=== PATIENT | male | born 1985 | race Caucasian/White ===

== ENCOUNTER 2020-08-02 23:28 | Emergency (ER) | payer SELFPAY ==
--- OUTSIDE RECORDS SUMMARY | 2020-08-02 23:32 | XMS REPORT | Continuity of Care Document ---
:1985 Author Organization [facility] t Address [address] [place] [address] [address]. [address]. [address] [place] [address] Care Team Providers Name Role Phone Tristan Crooks MD Attending Clinician Problems This patient has no known problems. Allergies, Adverse Reactions, Alerts This patient has no known allergies or adverse reactions. Medications This patient has no known medications. Procedures This patient has no known procedures. Encounters Start End Encounter Admission Attending Care Care Encounter Source Date/Time Date/Time Type Type Clinicians Facility Department ID 2020-01-06 2020-01-06 Office CHIDI Crooks [id number] 14:42:15 15:25:40 Visit [facility] [id number] Surgical [id number] Special [phone] [address] Results This patient has no known results.
--- NOTE | 2020-08-03 01:20 | EDPHYS ---
Physician Documentation [facility] Name: Andres Elizondo II Age: 35 yrs Sex: Male : 1985 Arrival Date: 08/02/2020 Time: 23:38 Bed 13 Private MD: SHARON Physician Kolby Perkins HPI: 08/03 01:13 This 35 yrs old Male presents to ER via Ambulatory with complaints of Boil, jewels Cyst. 01:13 The patient presents with scrotal pain, with swelling. Onset: The symptoms/episode jewels began/occurred 2 day(s) ago. Modifying factors: The symptoms are alleviated by nothing, the symptoms are aggravated by nothing. Associated signs and symptoms: The patient has no apparent associated signs or symptoms. Severity of symptoms: At their worst the symptoms were mild, in the emergency department the symptoms are unchanged. The patient has not experienced similar symptoms in the past. Historical: - Allergies: 00:39 No Known Allergies; tl1 - Home Meds: 00:39 None [Active]; tl1 - PMHx: 00:39 None; tl1 - PSHx: 00:39 None; tl1 - Immunization history:: Adult Immunizations unknown. - Social history:: Smoking status: Patient reports the use of cigarette tobacco products, smokes one-half pack cigarettes per day, Patient/guardian denies using alcohol, street drugs. - Family history:: not pertinent. ROS: 01:13 Constitutional: Negative for fever, chills, and weight loss, Eyes: Negative for injury, jewels pain, redness, and discharge, ENT: Negative for injury, pain, and discharge, Neck: Negative for injury, pain, and swelling, Cardiovascular: Negative for chest pain, palpitations, and edema, Respiratory: Negative for shortness of breath, cough, wheezing, and pleuritic chest pain, Abdomen/GI: Negative for abdominal pain, nausea, vomiting, diarrhea, and constipation, Back: Negative for injury and pain, MS/Extremity: Negative for injury and deformity, Skin: Negative for injury, rash, and discoloration, Neuro: Negative for headache, weakness, numbness, tingling, and seizure, Psych: Negative for depression, anxiety, suicide ideation, homicidal ideation, and hallucinations, Allergy/Immunology: Negative for hives, rash, and allergies, Endocrine: Negative for neck swelling, polydipsia, polyuria, polyphagia, and marked weight changes, Hematologic/Lymphatic: Negative for swollen nodes, abnormal bleeding, and unusual bruising. 01:13 : Positive for small bump on scrotum, testis normal. Exam: :13 Constitutional: This is a well developed, well nourished patient who is awake, alert, jewels and in no acute distress. Head/Face: Normocephalic, atraumatic. Eyes: Pupils equal round and reactive to light, extra-ocular motions intact. Lids and lashes normal. Conjunctiva and sclera are non-icteric and not injected. Cornea within normal limits. Periorbital areas with no swelling, redness, or edema. ENT: Nares patent. No nasal discharge, no septal abnormalities noted. Tympanic membranes are normal and external auditory canals are clear. Oropharynx with no redness, swelling, or masses, exudates, or evidence of obstruction, uvula midline. Mucous membranes moist. Neck: Trachea midline, no thyromegaly or masses palpated, and no cervical lymphadenopathy. Supple, full range of motion without nuchal rigidity, or vertebral point tenderness. No Meningismus. Chest/axilla: Normal chest wall appearance and motion. Nontender with no deformity. No lesions are appreciated. Cardiovascular: Regular rate and rhythm with a normal S1 and S2. No gallops, murmurs, or rubs. Normal PMI, no JVD. No pulse deficits. Respiratory: Lungs have equal breath sounds bilaterally, clear to auscultation and percussion. No rales, rhonchi or wheezes noted. No increased work of breathing, no retractions or nasal flaring. Abdomen/GI: Soft, non-tender, with normal bowel sounds. No distension or tympany. No guarding or rebound. No evidence of tenderness throughout. Back: No spinal tenderness. No costovertebral tenderness. Full range of motion. Skin: Warm, dry with normal turgor. Normal color with no rashes, no lesions, and no evidence of cellulitis. MS/ Extremity: Pulses equal, no cyanosis. Neurovascular intact. Full, normal range of motion. Neuro: Awake and alert, GCS 15, oriented to person, place, time, and situation. Cranial nerves II-XII grossly intact. Motor strength 5/5 in all extremities. Sensory grossly intact. Cerebellar exam normal. Normal gait. Psych: Awake, alert, with orientation to person, place and time. Behavior, mood, and affect are within normal limits. 01:13 : Male external genitalia: normal, Patient is not circumisioned. erythema, of the right testicle is seen, on scrotum . Vital Signs: 00:39 BP 147 / 95; Pulse 82; Resp 17; Pulse Ox 99% on R/A; Weight 99.79 kg; Height 5 ft. 10 tl1 in. (177.80 cm); Pain 2/10; 00:39 Body Mass Index 31.57 (99.79 kg, 177.80 cm) tl1 MDM: 00:46 Patient medically screened. [facility] 01:05 Patient medically screened. [facility] 01:16 Differential diagnosis: nonspecific abdominal pain, UTI, urethritis. Data reviewed: [facility] vital signs, nurses notes. Data interpreted: cafeteria monitor: not applicable for this patient encounter. Pulse oximetry: on room air is 99 %. Counseling: I had a detailed discussion with the patient and/or guardian regarding: the historical points, exam findings, and any diagnostic results supporting the discharge/admit diagnosis, lab results, the need for outpatient follow up, for definitive care, a urologist. Administered Medications: 01:16 Drug: Doxycycline 100 mg Route: PO; fu 01:28 Follow up: Response: No adverse reaction fu 01:17 Drug: Bactrim (160 mg-800 mg (DS) 1 tablet Route: PO; fu 01:28 Follow up: Response: No adverse reaction fu Disposition: 08/03/20 01:19 Discharged to Home. Impression: Sebaceous cyst. - Condition is Stable. - Discharge Instructions: Epidermal Cyst, [id number], Epidermal Cyst. - Prescriptions for Doxycycline Hyclate 100 mg Oral Tablet - take 1 tablet by ORAL route every 12 hours; 20 tablet. Bactrim DS 800- 160 mg Oral Tablet - take 1 tablet by ORAL route every 12 hours for 10 days; 20 tablet. - Medication Reconciliation Form, Thank You Letter, Antibiotic Education, Prescription Opioid Use form. - Follow up: Private Physician; When: 2 - 3 days; Reason: Recheck today's complaints, Continuance of care, Re-evaluation by your physician. Follow up: Tin Ann MD; When: 2 - 3 days; Reason: Recheck today's complaints, Re-evaluation by your physician. - Problem is new. - Symptoms have improved. Signatures: Dispatcher [employer] EDIL Kolby Perkins MD MD cha Mickail, Joel, PA PA jmm Lasagna, Tonya, RN RN tl1 Kit Blas RN RN fu Corrections: (The following items were deleted from the chart) 01:13 00:46 CBC+H.LAB.BRZ ordered. EDIL EDMS 01:13 00:46 COMPREHENSIVE METABOLIC PANEL+C.LAB.BRZ ordered. [facility] EDIL 01:17 00:46 IV Saline Lock ordered. [facility] 01:29 01:19 08/03/2020 01:19 Discharged to Home. Impression: Sebaceous cyst. Condition is fu Stable. Forms are Medication Reconciliation Form, Thank You Letter, Antibiotic Education, Prescription Opioid Use. Follow up: Private Physician; When: 2 - 3 days; Reason: Recheck today's complaints, Continuance of care, Re-evaluation by your physician. Follow up: Tin Ann; When: 2 - 3 days; Reason: Recheck today's complaints, Re-evaluation by your physician. Problem is new. Symptoms have improved. jewels
--- NOTE | 2020-08-03 01:20 | ER ---
Nurse's Notes [facility] Name: Andres Elizondo II Age: 35 yrs Sex: Male : 1985 Arrival Date: 08/02/2020 Time: 23:38 Bed 13 Private MD: Diagnosis: Sebaceous cyst Presentation: 08/03 00:37 Chief complaint: Patient states: I have a mass or boil behind my right testicle. I tl1 think I think my lymph nodes are swollen and I have pains in my upper legs. I noticed this about 2 weeks ago. Coronavirus screen: Client denies travel out of the [place] in the last 14 days. Ebola Screen: Patient negative for fever greater than or equal to 101.5 degrees Fahrenheit, and additional compatible Ebola Virus Disease symptoms Patient denies exposure to infectious person. Patient denies travel to an Ebola-affected area in the 21 days before illness onset. Initial Sepsis Screen: Does the patient meet any 2 criteria? No. Patient's initial sepsis screen is negative. Does the patient have a suspected source of infection? No. Patient's initial sepsis screen is negative. Risk Assessment: Do you want to hurt yourself or someone else? Patient reports no desire to harm self or others. Onset of symptoms was July 16, 2020. 00:37 Method Of Arrival: Ambulatory tl1 00:37 Acuity: NIKA 3 tl1 Historical: - Allergies: 00:39 No Known Allergies; tl1 - Home Meds: 00:39 None [Active]; tl1 - PMHx: 00:39 None; tl1 - PSHx: 00:39 None; tl1 - Immunization history:: Adult Immunizations unknown. - Social history:: Smoking status: Patient reports the use of cigarette tobacco products, smokes one-half pack cigarettes per day, Patient/guardian denies using alcohol, street drugs. - Family history:: not pertinent. Screenin:43 Abuse screen: Denies threats or abuse. Nutritional screening: No deficits noted. fu Tuberculosis screening: No symptoms or risk factors identified. Fall Risk None identified. Assessment: 00:41 General: Appears in no apparent distress. Behavior is calm, cooperative, appropriate fu for age, Denies fever, feeling ill, fatigue, chills. Pain: Complains of pain in right testicle Pain does not radiate. Pain currently is 5 out of 10 on a pain scale. Neuro: Level of Consciousness is awake, alert, obeys commands, Oriented to person, place, time, situation, Moves all extremities. Gait is steady, Speech is normal, Facial symmetry appears normal. Cardiovascular: Denies chest pain, nausea, vomiting. Respiratory: Respiratory effort is even, unlabored, Respiratory pattern is regular. GI: No signs and/or symptoms were reported involving the gastrointestinal system. : Reports pain scrotum. 01:11 Reassessment: Dr. Perkins in patient's room talking with patient. fu Vital Signs: 00:39 BP 147 / 95; Pulse 82; Resp 17; Pulse Ox 99% on R/A; Weight 99.79 kg; Height 5 ft. 10 tl1 in. (177.80 cm); Pain 2/10; 00:39 Body Mass Index 31.57 (99.79 kg, 177.80 cm) tl1 ED Course: 08/02 23:38 Patient arrived in ED. am2 08/03 00:39 Triage completed. tl1 00:39 Kit Blas, SYLVIA is Primary Nurse. fu 00:40 Arm band placed on right wrist. tl1 00:43 Patient has correct armband on for positive identification. Placed in gown. Bed in low fu position. Call light in reach. 01:04 Kolby Perkins MD is Attending Physician[facility] 01:18 Tin Ann MD is Referral Physician. jewels 01:20 No provider procedures requiring assistance completed. Patient did not have IV access fu during this emergency room visit. Administered Medications: 01:16 Drug: Doxycycline 100 mg Route: PO; fu 01:28 Follow up: Response: No adverse reaction fu 01:17 Drug: Bactrim (160 mg-800 mg (DS) 1 tablet Route: PO; fu 01:28 Follow up: Response: No adverse reaction fu Outcome: 01:19 Discharge ordered by . jewels 01:29 Discharged to home ambulatory. fu :29 Condition: stable 01:29 Discharge instructions given to patient, Instructed on discharge instructions, follow up and referral plans. Demonstrated understanding of instructions, follow-up care, Prescriptions given X 2. 01:29 Patient left the ED. fu Signatures: Kolby Perkins MD MD cha Lasagna, Tonya RN RN tl1 Melinda Lazo am2 Umadhay, Kit, RN RN fu
[2020-08-03] MEDS ORDERED: DOXYCYCLINE 100 MG CAP PO ONE (01:32)
[2020-08-03] MEDS ORDERED: SMZ./TMP. 800/160 MG TABLET ONE (01:32)
[2020-08-03 04:37] VITALS: BP 147/95; O2SAT 99
== END 2020-08-03 01:29 | disposition home or self-care (01) ==
LOC: ER 23:28
DX: L72.3 Sebaceous cyst (principal); F17.210 Nicotine dependence, cigarettes, uncomplicated
CPT/HCPCS: 99283

== ENCOUNTER 2020-08-15 04:48 | Emergency (ER) | payer SELFPAY ==
--- OUTSIDE RECORDS SUMMARY | 2020-08-15 04:51 | XMS REPORT | Continuity of Care Document ---
:[address] [facility] t Address [address] [place] [address] Dr. Tru[address]. [address] [place] [address] Care Team Providers Name Role Phone Tristan [...] Department ID 2020-01-06 2020-01-06 Office CHIDI Crooks [id number] 14:42:15 15:25:40 Visit [facility] [id number] Surgical [id number] Special [phone] [address] Results This patient has no known results.
[2020-08-15 05:26] LABS: Absolute Lymphocytes (CBC) 3.7 K/uL (0.7-4.9); Basophils % 0.8 % (0-1.3); Hematocrit 48.6 % (39.6-49.0); Lymphocytes % 43.4 % (15.3-44.8); MPV 7.8 fL (7.6-11.3); RBC Red Blood Cell Count 5.54 M/uL (4.33-5.43)
[2020-08-15 05:27] LABS: Urine Blood NEGATIVE (NEG); Urine Glucose NEGATIVE (NEG); Urine Protein NEGATIVE (NEG); Urine Specific Gravity >1.030 (1.005-1.030); Urine pH 5.5 (5.0-7.0)
[2020-08-15] MEDS ORDERED: NA CHLORIDE 0.9% 1,000 ML ONE (05:28)
[2020-08-15] MEDS ORDERED: MORPHINE 4 MG/ML SYR ONE (05:28)
[2020-08-15] MEDS ORDERED: ONDANSETRON 4 MG/2 ML VIAL ONE (05:28)
[2020-08-15 05:41] LABS: Albumin 3.9 g/dL (3.4-5.0); Bilirubin Direct 0.1 mg/dL (0-0.2); Bilirubin Total 0.4 mg/dL (0.2-1.0); Potassium 3.9 mmol/L (3.5-5.1); Protein, Total 7.5 g/dL (6.4-8.2)
--- NOTE | 2020-08-15 06:50 | EDPHYS ---
Physician Documentation [facility] Name: Andres Elizondo II Age: 35 yrs Sex: Male : 1985 Arrival Date: 08/15/2020 Time: 04:50 Bed 5 Private MD: ED Physician Stef Nicolas HPI: 08/15 05:21 This 35 yrs old Male presents to ER via Ambulatory with complaints of Kidney mh7 Pain. 05:21 The patient complains of pain in the right flank. The pain radiates to the abdomen. mh7 Onset: The symptoms/episode began/occurred 2 day(s) ago. Modifying factors: The symptoms are alleviated by nothing. the symptoms are aggravated by nothing. Associated signs and symptoms: Pertinent positives: diarrhea, Pertinent negatives: dizziness, dysuria, fever, urinary frequency, headache, hematuria, nausea, pain radiating to the lower extremities, vomiting. Severity of pain: At its worst the pain was moderate last night, in the emergency department the pain is unchanged. Historical: - Allergies: 05:05 No Known Allergies; mg2 - Home Meds: 05:05 None [Active]; mg2 - PMHx: 05:05 None; mg2 - PSHx: 05:05 None; mg2 - Immunization history:: Flu vaccine is not up to date. - Social history:: Smoking status: Patient reports the use of cigarette tobacco products, Patient/guardian denies using street drugs, IV drugs. ROS: 05:21 Constitutional: Negative for fever, chills, and weight loss, Eyes: Negative for injury, mh7 pain, redness, and discharge, ENT: Negative for injury, pain, and discharge, Neck: Negative for injury, pain, and swelling, Cardiovascular: Negative for chest pain, palpitations, and edema, Respiratory: Negative for shortness of breath, cough, wheezing, and pleuritic chest pain, : Negative for injury, bleeding, discharge, and swelling, MS/Extremity: Negative for injury and deformity, Skin: Negative for injury, rash, and discoloration, Neuro: Negative for headache, weakness, numbness, tingling, and seizure, Psych: Negative for depression, anxiety, suicide ideation, homicidal ideation, and hallucinations, Allergy/Immunology: Negative for hives, rash, and allergies, Endocrine: Negative for neck swelling, polydipsia, polyuria, polyphagia, and marked weight changes, Hematologic/Lymphatic: Negative for swollen nodes, abnormal bleeding, and unusual bruising. Exam: 05:21 Constitutional: This is a well developed, well nourished patient who is awake, alert, mh7 and in no acute distress. Head/Face: Normocephalic, atraumatic. Eyes: Pupils equal round and reactive to light, extra-ocular motions intact. Lids and lashes normal. Conjunctiva and sclera are non-icteric and not injected. Cornea within normal limits. Periorbital areas with no swelling, redness, or edema. Neck: Trachea midline, no thyromegaly or masses palpated, and no cervical lymphadenopathy. Supple, full range of motion without nuchal rigidity, or vertebral point tenderness. No Meningismus. Chest/axilla: Normal chest wall appearance and motion. Nontender with no deformity. No lesions are appreciated. Cardiovascular: Regular rate and rhythm with a normal S1 and S2. No gallops, murmurs, or rubs. Normal PMI, no JVD. No pulse deficits. Respiratory: Lungs have equal breath sounds bilaterally, clear to auscultation and percussion. No rales, rhonchi or wheezes noted. No increased work of breathing, no retractions or nasal flaring. 05:21 Skin: Warm, dry with normal turgor. Normal color with no rashes, no lesions, and no evidence of cellulitis. MS/ Extremity: Pulses equal, no cyanosis. Neurovascular intact. Full, normal range of motion. Neuro: Awake and alert, GCS 15, oriented to person, place, time, and situation. Cranial nerves II-XII grossly intact. Motor strength 5/5 in all extremities. Sensory grossly intact. Cerebellar exam normal. Normal gait. Psych: Awake, alert, with orientation to person, place and time. Behavior, mood, and affect are within normal limits. 05:21 Abdomen/GI: Inspection: abdomen appears normal, Bowel sounds: normal, in all quadrants, Palpation: moderate abdominal tenderness, in the epigastric area and right upper quadrant, mass, is not appreciated, rebound tenderness, is not appreciated, voluntary guarding, is not appreciated, involuntary guarding, is not appreciated, no appreciated organomegaly, Rectal exam: the exam is deferred, because of patient request, Indicators: McBurney's point is not tender, Lee's sign is negative, Rovsing's sign is negative, Obturator sign is negative, Psoas sign is negative, Liver: no appreciated palpable abnormalities, Hernia: not appreciated. 05:21 Abdomen/GI: Palpation: 05:21 Back: CVA tenderness, that is moderate, is noted on the right. Vital Signs: 05:03 BP 150 / 91; Pulse 100; Resp 18; Temp 98.3; Pulse Ox 100% on R/A; Weight 99.79 kg; mg2 Height 5 ft. 9 in. (175.26 cm); Pain 06/18; 06:02 BP 129 / 82; Pulse 80; Resp 18; Pulse Ox 99% on R/A; mg2 05:03 Body Mass Index 32.49 (99.79 kg, 175.26 cm) mg2 MDM: 06:46 Differential diagnosis: nephrolithiasis, pyelonephritis, UTI, diverticulitis, mh7 pancreatitis. Data reviewed: vital signs, nurses notes, old medical records, lab test result(s), amylase and lipase, CBC, electrolytes, urinalysis, radiologic studies, CT scan. Counseling: I had a detailed discussion with the patient and/or guardian regarding: the historical points, exam findings, and any diagnostic results supporting the discharge/admit diagnosis, lab results, radiology results, the need for outpatient follow up, to return to the emergency department if symptoms worsen or persist or if there are any questions or concerns that arise at home. Response to treatment: the patient's symptoms have resolved after treatment, the patient's blood pressure is in an acceptable range, mental status has returned to baseline, the patient no longer shows bradycardia, the patient is not short of breath, the patient is not tachycardic, the patient's pain is gone, the patient's temperature has normalized. Refusal of service: The patient/guardian displays adequate decision making capability and despite a detailed discussion of alternatives, benefits, risks, and consequences refuses: Medications. ED course: Patient reports that he has been taking Bactrim recently.. 06:49 Patient medically screened. [facility] 08/15 05:06 Order name: Basic Metabolic Panel [facility] 08/15 05:06 Order name: CBC with Diff [facility] 08/15 05:06 Order name: Hepatic Function [facility] 08/15 05:06 Order name: Lipase [facility] 08/15 05:19 Order name: Urine Dipstick--Ancillary (enter results) ar5 08/15 05:28 Order name: Urine Dipstick-Ancillary; Complete Time: 05:51 EDMS 08/15 05:33 Order name: CBC with Automated Diff; Complete Time: 05:51 EDMS 08/15 05:41 Order name: Basic Metabolic Panel; Complete Time: 05:51 EDMS 08/15 05:41 Order name: Liver (Hepatic) Function; Complete Time: 05:51 EDMS 08/15 05:41 Order name: Lipase; Complete Time: 05:51 EDMS 08/15 05:55 Order name: CT Abd/Pelvis - IV Contrast Only [facility] 08/15 05:06 Order name: IV Saline Lock; Complete Time: 05:16 7 08/15 05:06 Order name: Labs collected and sent; Complete Time: 05:16 7 08/15 05:06 Order name: Urine Dipstick-Ancillary (obtain specimen); Complete Time: 05:16 7 Administered Medications: 05:15 Drug: NS 0.9% 1000 ml Route: IV; Rate: 1000 ml; Site: right antecubital; mg2 06:59 Follow up: Response: No adverse reaction; IV Status: Completed infusion wh 05:16 Not Given (Patient Refused): morphine 4 mg IVP once; RASS on ADMIN: Combtv4, Very mg2 Agttd3, Agttd2, Rstlss1, AlertClm0, Drwsy-1, Lt Sdtn-2, Mod Sdtn-3, Dp Sdtn-4, UnArsble-5 05:16 Not Given (Patient Refused): Zofran (Ondansetron) 4 mg IVP once; over 2 minutes mg2 Disposition: 08/15/20 06:49 Discharged to Home. Impression: Flank Pain, Abdominal Pain, Diarrhea. - Condition is Stable. - Discharge Instructions: Abdominal Pain, Adult, Iccf-cu-Pxxy, Diarrhea, Adult, Cvde-vb-Cwfy, Flank Pain, Slhf-mj-Sxhn. - Prescriptions for Bentyl 20 mg Oral Tablet - take 1 tablet by ORAL route every 6 hours As needed; 20 tablet. Flagyl 500 mg Oral Tablet - take 1 tablet by ORAL route every 8 hours for 7 days; 21 tablet. Cipro 500 mg Oral Tablet - take 1 tablet by ORAL route every 12 hours for 7 days; 14 tablet. - Medication Reconciliation Form, Thank You Letter, Antibiotic Education, Prescription Opioid Use form. - Follow up: Private Physician; When: 1 - 2 days; Reason: Worsening of condition, Recheck today's complaints, Continuance of care, Re-evaluation by your physician. - Problem is new. - Symptoms have improved. Signatures: Dispatcher [employer] EDRI Basil Watt RN RN Yovani Rosa RN RN [facility] Stef Nicolas MD MD mh7 Corrections: (The following items were deleted from the chart) 07:00 06:49 08/15/2020 06:49 Discharged to Home. Impression: Flank Pain; Abdominal Pain; wh Diarrhea. Condition is Stable. Forms are Medication Reconciliation Form, Thank You Letter, Antibiotic Education, Prescription Opioid Use. Follow up: Private Physician; When: 1 - 2 days; Reason: Worsening of condition, Recheck today's complaints, Continuance of care, Re-evaluation by your physician. Problem is new. Symptoms have improved. mh7
--- NOTE | 2020-08-15 06:50 | ER ---
Nurse's Notes [facility] Name: Andres Elizondo II Age: 35 yrs Sex: Male : 1985 Arrival Date: 08/15/2020 Time: 04:50 Bed 5 Private MD: Diagnosis: Flank Pain;Abdominal Pain;Diarrhea Presentation: 08/15 05:03 Chief complaint: Patient states: right side pain radiating to the RUQ started 2 days mg2 ago. denies n/v. he was having episodes of constipation and diarrhea for few days. Coronavirus screen: Client denies travel out of the [place] in the last 14 days. Ebola Screen: No symptoms or risks identified at this time. Initial Sepsis Screen: Does the patient meet any 2 criteria? No. Patient's initial sepsis screen is negative. Does the patient have a suspected source of infection? No. Patient's initial sepsis screen is negative. Risk Assessment: Do you want to hurt yourself or someone else? Patient reports no desire to harm self or others. Onset of symptoms was August 13, 2020. 05:03 Method Of Arrival: Ambulatory mg2 05:03 Acuity: NIKA 3 mg2 Triage Assessment: 05:05 General: Appears in no apparent distress. comfortable, Behavior is calm, cooperative. mg2 Pain: Complains of pain in right flank Pain radiates to right upper quadrant. EENT: No signs and/or symptoms were reported regarding the EENT system. Neuro: Level of Consciousness is awake, alert, obeys commands, Oriented to person, place, time, situation. Cardiovascular: Capillary refill < 3 seconds Patient's skin is warm and dry. Respiratory: Airway is patent Respiratory effort is even, unlabored, Respiratory pattern is regular, symmetrical. GI: Reports upper abdominal pain. : No signs and/or symptoms were reported regarding the genitourinary system. Derm: Skin is intact, is healthy with good turgor, Skin is pink, warm \T\ dry. normal. Musculoskeletal: Circulation, motion, and sensation intact. Capillary refill < 3 seconds. Historical: - Allergies: 05:05 No Known Allergies; mg2 - Home Meds: 05:05 None [Active]; mg2 - PMHx: 05:05 None; mg2 - PSHx: 05:05 None; mg2 - Immunization history:: Flu vaccine is not up to date. - Social history:: Smoking status: Patient reports the use of cigarette tobacco products, Patient/guardian denies using street drugs, IV drugs. Screenin:07 Abuse screen: Denies threats or abuse. Denies injuries from another. Nutritional mg2 screening: No deficits noted. Tuberculosis screening: No symptoms or risk factors identified. Fall Risk None identified. Assessment: 05:07 Reassessment: see triage note. mg2 06:02 Reassessment: Patient appears in no apparent distress at this time. Patient and/or mg2 family updated on plan of care and expected duration. Pain level reassessed. Patient is alert, oriented x 3, equal unlabored respirations, skin warm/dry/pink. Vital Signs: 05:03 BP 150 / 91; Pulse 100; Resp 18; Temp 98.3; Pulse Ox 100% on R/A; Weight 99.79 kg; mg2 Height 5 ft. 9 in. (175.26 cm); Pain 1/10; 06:02 BP 129 / 82; Pulse 80; Resp 18; Pulse Ox 99% on R/A; mg2 05:03 Body Mass Index 32.49 (99.79 kg, 175.26 cm) mg2 ED Course: 04:50 Patient arrived in ED. cl3 04:55 Stef Nicolas MD is Attending Physician. mh7 05:03 Yovani Rosa, SYLVIA is Primary Nurse. mg2 05:05 Triage completed. mg2 05:07 Arm band placed on. mg2 05:07 Patient has correct armband on for positive identification. mg2 05:07 No provider procedures requiring assistance completed. mg2 05:16 Inserted saline lock: 20 gauge in right antecubital area, using aseptic technique. mg2 Blood collected. 06:59 IV discontinued, intact, bleeding controlled, No redness/swelling at site. wh 08:09 CT Abd/Pelvis - IV Contrast Only In Process Unspecified. EDMS Administered Medications: 05:15 Drug: NS 0.9% 1000 ml Route: IV; Rate: 1000 ml; Site: right antecubital; mg2 06:59 Follow up: Response: No adverse reaction; IV Status: Completed infusion wh 05:16 Not Given (Patient Refused): morphine 4 mg IVP once; RASS on ADMIN: Combtv4, Very mg2 Agttd3, Agttd2, Rstlss1, AlertClm0, Drwsy-1, Lt Sdtn-2, Mod Sdtn-3, Dp Sdtn-4, UnArsble-5 05:16 Not Given (Patient Refused): Zofran (Ondansetron) 4 mg IVP once; over 2 minutes mg2 Outcome: 06:49 Discharge ordered by . [email or web address] 06:59 Discharged to home ambulatory. 06:59 Condition: stable 06:59 Discharge instructions given to patient, Instructed on discharge instructions, follow up and referral plans. medication usage, POC Demonstrated understanding of instructions, follow-up care, medications, POC Prescriptions given X 3. 07:00 Patient left the ED. Signatures: Dispatcher [employer] EDMS Basil Watt RN RN Yovani Rosa RN RN mg2 Musa Navarrete cl3 Stef Nicolas MD MD mh7
[2020-08-15 07:06] VITALS: TEMP 98.3
[2020-08-15 07:07] VITALS: BP 129/82; O2SAT 99
--- NOTE | 2020-08-15 09:52 | RAD REPORT ---
EXAM DESCRIPTION: CT - Abdomen Pelvis W Contrast - 08/15/2020 6:50 am COMPARISON: None. CLINICAL HISTORY: [facility] MAIN Abd pain;Flank pain TECHNIQUE: CT of the abdomen and pelvis was acquired with IV contrast material. Coronal and sagitt al reconstructions were obtained. Automated exposure control was utilized on this examination as a dose lowering technique. FINDINGS: Lung bases: Clear. Liver: Normal. Gallbladder and biliary: Normal gallbladder. Unremarkable biliary tree. Pancreas: Normal. Spleen: Normal. Adrenal glands: Normal adrenal glands. Kidneys: Normal kidneys Stomach and Small Bowel: The stomach and small bowel are normal. Urinary bladder: Bladder wall thickening is present. Prostate/Male Urogenital: Normal. Colon and Appendix: The colon is unremarkable. No evidence of appendicitis. Retroperitoneum and lymph nodes: Normal. Vascular: Normal. Peritoneal cavity: No ascites or free air. Musculoskeletal and soft tissues: Soft tissues are unremarkable. No aggressive bone lesions. No com pression fracture. IMPRESSION: Bladder wall thickening may be seen with cystitis in the appropriate clinical setting. N o other acute intra-abdominal abnormalities. Electronically signed by: Ross Mcghee MD 08/15/2020 6:32 AM STUDENT ACTIVITIES DIRECTOR Due to temporary technical issues with the PACS/Fluency reporting system, reports are being signed by the in house radiologist without review as a courtesy to ensure prompt reporting. The interpreting r adiologist is fully responsible for the content of the report.
== END 2020-08-15 07:00 | disposition home or self-care (01) ==
LOC: ER 04:48
DX: R19.7 Diarrhea, unspecified (principal); Z72.0 Tobacco use
CPT/HCPCS: 36415; 74177; 80048; 80076; 81003; 83690; 85025; 96360; 96361; 99284; J2405; J7030; Q9967